=== PATIENT | female | born 1960 | race Caucasian/White ===

== ENCOUNTER 2024-08-07 15:54 | Emergency (ER) | payer SELFPAY ==
[2024-08-07] VITALS (17 sets, daily range): BP systolic 112–139; BP diastolic 58–82; PULSE 77–89; RESP 11–28; TEMP 36.7; O2SAT 85–99; BMI 22.9
--- NOTE | 2024-08-07 16:11 | EKG_ITS ---
[address] [address] Test Date: 2024-08-07 Pat Name: Fay العلي Department: Room: Gender: Female Degree Clerk: SANG : 1960 Requested By: Order Number: [id number] Reading MD: Jose Francisco Araiza MD Measurements Intervals [place] Rate: 78 P: 78 [place]: 152 QRS: 74 QRSD: 74 T: 81 QT: 380 QTc: 433 Interpretive Statements Normal sinus rhythm Electronically Signed On 08-08-2024 6:51:18 PST by Jose Francisco Araiza MD
[2024-08-07] MEDS: ONDANSETRON 4 MG/2 ML INJ IV ×2 (16:38→21:20)
[2024-08-07 16:44] LABS: Add Manual Diff / Slide Review NO; Basophils Absolute Auto 0 /uL (0-100); Basophils Percent Auto 0.2 % (0-2); Eosinophils Absolute Auto 100 /uL (0-450); Eosinophils Percent Auto 1.5 % (2-4); Hematocrit 44.9 % (36-46); Hemoglobin 15.3 g/dL (12.0-16.0); Lymphocytes Absolute Auto 500 /uL (1100-4500); Lymphocytes Percent Auto 5.9 % (25-40); Mean Corpuscular Hemoglobin 31.9 PG (26-34); Mean Corpuscular Volume 93.6 fL (80-100); Monocytes Absolute Auto 300 /uL (0-900); Monocytes Percent Auto 4.4 % (3-14); Neutrophils Absolute Auto 6800 /uL (1500-7000); Platelet Count 189 X10^3/uL (150-400); Red Blood Cell Count 4.79 X10^6/uL (4.0-5.2); Red Cell Distribution Width 12.5 % (11.6-14.8); White Blood Cell Count 7.7 X10^3/uL (4.5-11.0)
--- NOTE | 2024-08-07 17:04 | ED.GENADULT ---
HPI - General Adult General Chief complaint: Abdominal Pain Stated complaint: vomiting, abd and back px Time Seen by Provider: 08/07/24 16:59 Source: patient and family Mode of arrival: Wheelchair Related Data Allergies Allergy/AdvReac Type Severity Reaction Status Date / Time No Known Drug Allergies Allergy Verified 08/07/24 16:12 Patient History Social History Smoking Status: Former smoker Smoking Status: Former smoker Exam Initial Vital Signs Initial Vital Signs: Vital Signs Temperature 98.0 F 08/07/24 16:02 Pulse Rate 77 08/07/24 16:02 Respiratory Rate 19 08/07/24 16:02 Blood Pressure 112/58 L 08/07/24 16:02 Pulse Oximetry 97 08/07/24 16:02 Oxygen Delivery Method Room Air 08/07/24 16:02 Course Orders Ordered: ED Orders 08/07/24 16:11 EKG-12 Lead Stat 08/07/24 16:33 Complete Blood Count AUTO DIFF Stat Comprehensive Metabolic Panel Stat Lipase Stat Trop I [Troponin I] Stat Ondansetron HCl (Ondansetron 4 Mg/2 Ml Inj) 4 mg IV NOW PRN PRN Reason: Nausea And Vomiting Last Admin: 08/07/24 16:38 Dose: 4 mg Documented By: ES Ondansetron HCl (Ondansetron 4 Mg Odt) 4 mg PO NOW PRN PRN Reason: Nausea And Vomiting Vital Signs Vital signs: Vital Signs - 8 hr 08/07/24 16:02 Temperature 98.0 F Pulse Rate 77 Respiratory Rate 19 Blood Pressure 112/58 L Pulse Oximetry 97 Oxygen Delivery Method Room Air Medical Decision Making Lab Data 08/07/24 16:33 08/07/24 16:33 Labs: Lab Results 08/07/24 Range/Units 16:33 WBC 7.7 (4.5-11.0) X10^3/uL RBC 4.79 (4.0-5.2) X10^6/uL Hgb 15.3 (12.0-16.0) g/dL Hct 44.9 (36-46) % MCV 93.6 (80-100) fL MCH 31.9 (26-34) PG MCHC 34.0 (30-36) % RDW 12.5 (11.6-14.8) % Plt Count 189 (150-400) X10^3/uL Neut % (Auto) 88.0 H (50-75) % Lymph % (Auto) 5.9 L (25-40) % [place] % (Auto) 4.4 (3-14) % Eos % (Auto) 1.5 L (2-4) % Baso % (Auto) 0.2 (0-2) % Neut # (Auto) 6800 (8808-2349) /uL Lymph # (Auto) 500 L (7272-5813) /uL [place] # (Auto) 300 (0-900) /uL Eos # (Auto) 100 (0-450) /uL Baso # (Auto) 0 (0-100) /uL Discharge Plan Departure Referrals: Miscellaneous,Doctor, [Primary Care Provider] -
[2024-08-07 17:05] LABS: Alanine Aminotransferase 111 IU/L (<35); Albumin 4.4 g/dL (3.5-5.0); Albumin Globulin Ratio 1.6 (1.0-2.8); Alkaline Phosphatase 74 U/L (38-126); Aspartate Aminotransferase 328 IU/L (14-36); BUN Creatinine Ratio 28.6 (6-22); Blood Urea Nitrogen 22 mg/dL (7-17); Calcium 8.8 mg/dL (8.4-10.2); Carbon Dioxide 20 mmol/L (22-32); Chloride 108 mmol/L (98-107); Estimated Glomerular Filt Rate > 60 mL/min (>60); Globulin 2.7 g/dL (1.7-4.1); Glucose 120 mg/dL (80-110); HEMOLYSIS 65 (0-50); Lipase 442 U/L (23-300); Potassium 4.6 mmol/L (3.4-5.1); Sodium 138 mmol/L (137-145); Total Protein 7.1 g/dL (6.3-8.2)
[2024-08-07 17:16] LABS: Troponin I < 0.012 ng/mL (0.01-0.034)
--- NOTE | 2024-08-07 18:06 | ED_ITS ---
HPI - Abdominal Pain General Chief Complaint: Abdominal Pain Stated Complaint: vomiting, abd and back px Time Seen by Provider: 08/07/24 18:05 Source: patient and family Mode of arrival: Wheelchair History of Present Illness HPI narrative: 64-year-old female well this morning, about 9:00 a.m. in sitting position at rest had left flank and left upper chest and left upper quadrant area discomfort, diaphoresis, no nausea or vomiting, felt that she might pass out, it seemed to improve some, eventually took hydrocodone dose, symptoms persisted, waxing and waning through the day, still present. No recent cough. Had some sensation of shortness of breath, denied increased discomfort with deep inspiration or changes in trunk or left upper extremity. Denies left lower extremity pain or swelling. No history of blood clot problems to legs or lungs or arms. No history of kidney stones. No history of coronary artery disease, recalls remote stress testing 20 years ago, stopped smoking November 2023, not on cholesterol medications, no history of diabetes, no history of hypertension. Still has some left lower chest discomfort. Related Data Allergies Allergy/AdvReac Type Severity Reaction Status Date / Time No Known Drug Allergies Allergy Verified 08/07/24 16:12 Review of Systems Review of Systems Narrative: See HPI Patient History Social History Smoking Status: Former smoker Smoking Status: Former smoker Exam Narrative Exam Narrative: GENERAL: Well-developed patient, in mild distress. HEAD: Atraumatic. Normocephalic. EYES: Pupils equal round and reactive. Extraocular motions intact. No scleral icterus. No injection or drainage. ENT: Nose without bleeding, purulent drainage. Throat without erythema, tonsillar hypertrophy or exudate. Airway patent. NECK: Trachea midline. Non tender CARDIOVASCULAR: Regular rate and rhythm without murmurs, gallops, or rubs. RESPIRATORY: Clear to auscultation. Breath sounds equal bilaterally. No wheezes, rales, or rhonchi. GASTROINTESTINAL: Abdomen soft, non-tender, nondistended. EXTREMITIES: No edema or joint tenderness. BACK: Nontender without deformity or crepitance. No flank tenderness. NEURO: AOx3. Motor functions grossly nonfocal SKIN: No rash or erythema of visible areas Initial Vital Signs Initial Vital Signs: Vital Signs Temperature 98.0 F 08/07/24 16:02 Pulse Rate 77 08/07/24 16:02 Respiratory Rate 19 08/07/24 16:02 Blood Pressure 112/58 L 08/07/24 16:02 Pulse Oximetry 97 08/07/24 16:02 Oxygen Delivery Method Room Air 08/07/24 16:02 Course Orders Ordered: ED Orders 08/07/24 20:35 Trop I [Troponin I] Stat Discontinued Medications Sodium Chloride (Normal Saline 0.9%) 1,000 mls @ 1,000 mls/hr IV BOLUS ONE Stop: 08/07/24 19:34 Last Infusion: 08/07/24 19:48 Dose: Infused Documented By: Admin: 08/07/24 18:48 Dose: 1,000 mls/hr Documented By: JAVID Morphine Sulfate (Morphine 4 Mg/Ml Inj) 4 mg IV NOW ONE Stop: 08/07/24 18:35 Last Admin: 08/07/24 18:48 Dose: 4 mg Documented By: JAVID Ondansetron HCl (Ondansetron 4 Mg/2 Ml Inj) 4 mg IV NOW PRN PRN Reason: Nausea And Vomiting Last Admin: 08/07/24 16:38 Dose: 4 mg Documented By: IESHA Ondansetron HCl (Ondansetron 4 Mg Odt) 4 mg PO NOW PRN PRN Reason: Nausea And Vomiting Ondansetron HCl (Ondansetron 4 Mg/2 Ml Inj) 4 mg IV NOW ONE Stop: 08/07/24 21:13 Last Admin: 08/07/24 21:20 Dose: 4 mg Documented By: IESHA Ondansetron HCl (Ondansetron 4 Mg Odt Prepack) 1 bottle MISC DIRECTED ONE Stop: 08/07/24 21:44 Last Admin: 08/07/24 21:47 Dose: 1 bottle Documented By: IESHA Vital Signs Vital signs: Vital Signs - 8 hr 08/07/24 21:23 08/07/24 21:23 08/07/24 21:30 Pulse Rate 80 80 Respiratory Rate 15 21 Blood Pressure 137/76 Pulse Oximetry 99 99 08/07/24 21:30 Pulse Rate Respiratory Rate Blood Pressure 136/73 Pulse Oximetry MDM - Abdominal Pain Lab Data Attestation: I reviewed the patient's lab results. Lab results narrative: White blood cell count 7700, hemoglobin 15, platelets normal. Basic metabolic panel serum CO2 20, otherwise unremarkable. Mild transaminitis, normal T bili and alk-phos noted. Lipase normal. Initial troponin negative. 08/07/24 16:33 08/07/24 16:33 Labs: Lab Results 08/07/24 08/07/24 08/07/24 Range/Units 16:33 19:30 20:35 WBC 7.7 (4.5-11.0) X10^3/uL RBC 4.79 (4.0-5.2) X10^6/uL Hgb 15.3 (12.0-16.0) g/dL Hct 44.9 (36-46) % MCV 93.6 (80-100) fL MCH 31.9 (26-34) PG MCHC 34.0 (30-36) % RDW 12.5 (11.6-14.8) % Plt Count 189 (150-400) X10^3/uL Neut % (Auto) 88.0 H (50-75) % Lymph % (Auto) 5.9 L (25-40) % [place] % (Auto) 4.4 (3-14) % Eos % (Auto) 1.5 L (2-4) % Baso % (Auto) 0.2 (0-2) % Neut # (Auto) 6800 (2594-7336) /uL Lymph # (Auto) 500 L (4031-7970) /uL [place] # (Auto) 300 (0-900) /uL Eos # (Auto) 100 (0-450) /uL Baso # (Auto) 0 (0-100) /uL Sodium 138 (137-145) mmol/L Potassium 4.6 (3.4-5.1) mmol/L Chloride 108 H (98-107) mmol/L Carbon Dioxide 20 L (22-32) mmol/L BUN 22 H (7-17) mg/dL Creatinine 0.77 (0.52-1.04) mg/dL Estimated GFR > 60 (>60) mL/min BUN/Creatinine Ratio 28.6 H (6-22) Glucose 120 H (80-110) mg/dL Calcium 8.8 (8.4-10.2) mg/dL Total Bilirubin 1.0 (0.2-1.3) mg/dL AST 328 H (14-36) IU/L ALT 111 H (<35) IU/L Alkaline Phosphatase 74 (38-126) U/L Troponin I < 0.012 < 0.012 (0.01-0.034) ng/mL Total Protein 7.1 (6.3-8.2) g/dL Albumin 4.4 (3.5-5.0) g/dL Globulin 2.7 (1.7-4.1) g/dL Albumin/Globulin Ratio 1.6 (1.0-2.8) Lipase 442 H (23-300) U/L Urine RBC 1-5/hpf (0-5/HPF) Urine WBC 0-1/hpf (0-5/HPF) Ur Squamous Epith Cells None seen (0-5/HPF) Urine Bacteria None seen (None) Ur Culture Indicated? Cult not indicated Vol Urine Centrifuged 10ml (spun) Point of care testing: Urine Dip Bedside Urine Glucose Negative Bedside Urine Bilirubin - Negative Bedside Urine Ketone - Negative Urine Specific [place] 1.010 Bedside Urine Occult Blood +/- Bedside Urine pH 6.0 Bedside Urine Protein +/- 15 Bedside Urine Urobilinogen - Negative Bedside Urine Nitrite - Negative Bedside Urine Leukocytes - Negative Esterase Imaging Data CT angiogram chest abdomen and pelvis: Radiologist's Impression: [place] [address] CT Scan Report Signed Patient: Fay العلي MR#: [id number] : 1960 Acct:[id number] Age/Sex: 64 / F Date of Service: 08/07/24 Loc: ED Accession Number: [id number] Procedure: CT angio chest abdomen pelvis Ordering Provider: Isidro Tristan MD PROCEDURE: CT ANGIO CHEST ABDOMEN PELVIS INDICATIONS: L chest flank LUQ pain, near syncope TECHNIQUE: Precontrast 5 mm thick sections acquired from the lung apices to the iliac crests. After the administration of intravenous contrast, 2.5 mm thick sections again acquired from the lung apices to the iliac crests. Maximum intensity projection (MIP) oblique sagittal and coronal reformats were then acquired. For radiation dose reduction, the following was used: automated exposure control. COMPARISON: None. FINDINGS: Image quality: Diagnostic. AORTA: No aortic aneurysm. No acute aortic syndrome. Mild to moderate atherosclerotic calcifications are seen in abdominal aorta. CHEST: Lower Neck: No enlarged lymph nodes. Thyroid: No thyroid nodules which require sonographic evaluation. Axillae: No enlarged lymph nodes. Chest Wall: Bilateral breast implants are grossly intact. Lungs and Pleura: No pneumothorax or pleural effusions. Biapical scarring. Scattered atelectasis in posterior and lateral periphery of bilateral lung [place]. No consolidation or suspicious nodules. Heart: Heart size is normal. No pericardial effusion. Thoracic Vessels: Pulmonary arteries demonstrate normal size. Mediastinum and [place]: No enlarged lymph nodes. Esophagus: No wall thickening. No hiatal hernia. ABDOMEN: Liver: No solid mass. Gallbladder: Gallbladder is surgically absent. Biliary ducts: No biliary dilation. Pancreas: No ductal dilation. Spleen: Size is within normal limits. Adrenal Glands: No adrenal nodules. Kidneys and Ureters: No hydronephrosis. No solid mass. No complex renal cystic lesion which requires follow up. Stomach and Bowel: Normal colonic caliber, without significant wall thickening. Sigmoid diverticulosis is seen without CT evidence of acute diverticulitis. No abscess collection. No evidence of acute appendicitis. Peritoneum: No abnormal intraperitoneal fluid. No free air. Ventral Wall: No hernia. Abdominal Nodes: No retroperitoneal or mesenteric adenopathy by size criteria. Vessels: Inferior vena cava is normal in size. PELVIS: Pelvic Organs: Unremarkable. Bladder: Unremarkable. Pelvic Nodes: No enlarged lymph nodes. Miscellaneous: No inguinal hernias are seen. Bones: No aggressive appearing bony lesions. Asymmetric moderate left hip joint osteoarthritis is seen. No evidence of avascular necrosis of femoral head. Pelvic ring is intact. No acute vertebral body compression fracture. IMPRESSION: 1. No aortic aneurysm or dissection. [id number] atherosclerotic calcifications in abdominal aorta. 2. No hemodynamically significant stenosis or aneurysm are seen in major branches of thoracic or abdominal aorta. 3. Scattered atelectasis in bilateral lung [place]. No focal infiltrate, pleural effusion or pneumothorax. 4. Bilateral breast implants are seen and are grossly intact. 5. No renal stones or hydronephrosis. 6. No acute inflammatory process is seen in abdomen or pelvis. No free fluid or free air. No bowel obstruction. Dictated by: Cleveland Crow M.D. on 08/07/2024 at 19:57 Approved by: Cleveland Crow M.D. on 08/07/2024 at 20:03 ECG Data Attestation: I personally reviewed and interpreted this ECG as follows: Interpretation: Normal sinus rhythm with rate 78, no obvious ST segment elevation or depression changes. PA 152, QRS 74, QTC 433. MDM Narrative Medical decision making narrative: 64-year-old female with left flank, left lower chest, left upper quadrant area discomfort since this morning, seemed to be improved after ondansetron given in the emergency department, also had taken own dose of oral hydrocodone. Symptoms not worse inspiration, no chest wall discomfort. Screening EKG unremarkable, initial troponin negative. Renal function normal. DX consider ACS, left ureteral stone, pyelo, aortic dissection, pulmonary embolus, pneumonia, other. We will repeat interval troponin. Renal function adequate, CT angiogram chest abdomen and pelvis ordered. IV fluid bolus. Urinalysis also still pending. Keep NPO. We will add IV morphine, nausea controlled with prior IV Zofran. EKG troponin negative. GFR favorable. CT angiogram chest abdomen pelvis pending Interval repeat troponin also negative CT angiogram chest abdomen and pelvis, no acute changes. See radiology report Patient feels better, we would like to go home, further workup as an outpatient for now. Discharged home with family. For now advised use of aspirin daily. Consider use [id number] Tylenol and Motrin as needed. Return precautions discussed. Discharge Plan Departure Patient Disposition: Home Clinical Impression: Left flank pain, Left-sided chest pain, Left sided abdominal pain Activity Restrictions/Additional Instructions: Left-sided chest flank abdominal discomfort of unclear etiology. EKG and serial blood tests not suggestive of heart attack. CT angiogram study of the chest in the abdomen in the pelvis also negative for acute changes. Unclear if this might be musculoskeletal in nature. Consider use of Tylenol and or ibuprofen. Consider further workup as an outpatient for now, that might include cardiac stress testing or other testing as an outpatient. Contact the office of your regular doctor tomorrow regular hours, to coordinate further close follow up as an outpatient. Local contact information for Cardiology also provided. Contact information for Dr. Dangelo provided. Consider taking aspirin once daily. Return to this/nearest emergency department for any change worsening symptoms or any concerns Referrals: Dereje Dangelo MD [Physician] - Miscellaneous,MD Jaden [Primary Care Provider] - Stand Alone Forms: Patient Portal/API/Survey
--- NOTE | 2024-08-07 18:36 | DI.CT.S_ITS ---
PROCEDURE: CT ANGIO CHEST ABDOMEN PELVIS INDICATIONS: L chest flank LUQ pain, near syncope TECHNIQUE: Precontrast 5 mm thick sections acquired from the lung apices to the iliac crests. After the administration of intravenous contrast, 2.5 mm thick sections again acquired from the lung apices to the iliac crests. Maximum intensity projection (MIP) oblique sagittal and coronal reformats were then acquired. For radiation dose reduction, the following was used: automated exposure control. COMPARISON: None. FINDINGS: Image quality: Diagnostic. AORTA: No aortic aneurysm. No acute aortic syndrome. Mild to moderate atherosclerotic calcifications are seen in abdominal aorta. CHEST: Lower Neck: No enlarged lymph nodes. Thyroid: No thyroid nodules which require sonographic evaluation. Axillae: No enlarged lymph nodes. Chest Wall: Bilateral breast implants are grossly intact. Lungs and Pleura: No pneumothorax or pleural effusions. Biapical scarring. Scattered atelectasis in posterior and lateral periphery of bilateral lung [place]. No consolidation or suspicious nodules. Heart: Heart size is normal. No pericardial effusion. Thoracic Vessels: Pulmonary arteries demonstrate normal size. Mediastinum and [place]: No enlarged lymph nodes. Esophagus: No wall thickening. No hiatal hernia. ABDOMEN: Liver: No solid mass. Gallbladder: Gallbladder is surgically absent. Biliary ducts: No biliary dilation. Pancreas: No ductal dilation. Spleen: Size is within normal limits. Adrenal Glands: No adrenal nodules. Kidneys and Ureters: No hydronephrosis. No solid mass. No complex renal cystic lesion which requires follow up. Stomach and Bowel: Normal colonic caliber, without significant wall thickening. Sigmoid diverticulosis is seen without CT evidence of acute diverticulitis. No abscess collection. No evidence of acute appendicitis. Peritoneum: No abnormal intraperitoneal fluid. No free air. Ventral Wall: No hernia. Abdominal Nodes: No retroperitoneal or mesenteric adenopathy by size criteria. Vessels: Inferior vena cava is normal in size. PELVIS: Pelvic Organs: Unremarkable. Bladder: Unremarkable. Pelvic Nodes: No enlarged lymph nodes. Miscellaneous: No inguinal hernias are seen. Bones: No aggressive appearing bony lesions. Asymmetric moderate left hip joint osteoarthritis is seen. No evidence of avascular necrosis of femoral head. Pelvic ring is intact. No acute vertebral body compression fracture. IMPRESSION: 1. No aortic aneurysm or dissection. [id number] atherosclerotic calcifications in abdominal aorta. 2. No hemodynamically significant stenosis or aneurysm are seen in major branches of thoracic or abdominal aorta. 3. Scattered atelectasis in bilateral lung [place]. No focal infiltrate, pleural effusion or pneumothorax. 4. Bilateral breast implants are seen and are grossly intact. 5. No renal stones or hydronephrosis. 6. No acute inflammatory process is seen in abdomen or pelvis. No free fluid or free air. No bowel obstruction. Dictated by: Cleveland Crow M.D. on 08/07/2024 at 19:57 Approved by: Cleveland Crow M.D. on 08/07/2024 at 20:03
[2024-08-07] MEDS: SODIUM CHLORIDE 0.9% 1,000 ML 1000 ML IV (18:48)
[2024-08-07] MEDS: MORPHINE 4 MG/ML INJ IV (18:48)
[2024-08-07 20:10] LABS: Bacteria Urine None Seen; RBC Urine 1-5/HPF (0-5/HPF); Squamous Epithelial Cell Urine None Seen (0-5/HPF); Urine Volume 10mL (spun); WBC Urine 0-1/HPF (0-5/HPF)
[2024-08-07 20:11] LABS: Culture Indicated Urine Cult Not Indicated
[2024-08-07 21:14] LABS: Troponin I < 0.012 ng/mL (0.01-0.034)
[2024-08-07] MEDS: ONDANSETRON 4 MG ODT PREPACK 1 BOTTLE MISC (21:47)
== END 2024-08-07 21:56 | disposition home or self-care (01) ==
PROVIDERS: Emergency Medicine; Emergency Provider Emergency Medicine
DX: R07.9 Chest pain, unspecified (principal); R10.12 Left upper quadrant pain; R06.02 Shortness of breath
CPT/HCPCS: 36415; 71275; 74174; 80053; 81003; 81015; 83690; 84484; 85025; 93005; 93010; 96361; 96374; 96375; 96376; 99284; J2270; J2405; Q9967